=== PATIENT | male | born 1935 | race Caucasian/White ===

== ENCOUNTER 2019-04-18 22:22 | Emergency (ER) | payer MEDICARE ==
[2019-04-18 23:10] VITALS: BP 158/73; PULSE 97; RESP 18; TEMP 97.2
--- NOTE | 2019-04-19 00:19 | ED ---
General Adult HPI - General Source: patient, RN notes reviewed, old records reviewed Mode of arrival: ambulatory Limitations: no limitations <Mello Good - Last Filed: 04/19/19 01:29> <Anamaria Mann - Last Filed: 04/20/19 06:04> - General Chief complaint: Extremity Problem,Nontraumatic Stated complaint: Rt leg injury Time Seen by Provider: 04/18/19 22:52 - History of Present Illness Initial comments: 83year-old male patient with past history of stent placement currently on Plavix presents to ED with right calf pain. Patient notes that he was very active today walking about, he began express pain in his right Approximate 4 hours prior to presentation. Patient denies any history of blood clot or DVT. Patient denies any chest pain or shortness of breath. Patient denies any other complaints at this time. Systemic: Pt denies fatigue, fever/chills, rash. Pt denies weakness, night sweats, weight loss. Neuro: Pt denies headache, visual disturbances, syncope or pre-syncope. HEENT: Pt denies ocular discharge or irritation, otalgia, rhinorrhea, pharyngitis or notable lymphadenopathy. Cardiopulmonary: Pt denies chest pain, SOB, heart palpitations, dyspnea on exertion. Abdominal/GI: Pt denies abdominal pain, n/v/d. : Pt denies dysuria, burning w/ urination, frequency/urgency. Denies new onset urinary or bowel incontinence. MSK: Pt denies myalgia, loss of strength or function in extremities. Neuro: Pt denies new onset weakness, paresthesias. (Mello Good) Review of Systems ROS Other: All systems not noted in ROS Statement are negative. <Mello Good - Last Filed: 04/19/19 01:29> ROS Other: All systems not noted in ROS Statement are negative. <Anamaria Mann - Last Filed: 04/20/19 06:04> ROS Statement: Those systems with pertinent positive or pertinent negative responses have been documented in the HPI. Past Medical History Past Medical History: Hypertension, Myocardial Infarction (NH) Additional Past Medical History / Comment(s): hypercholestremia History of Any Multi-Drug Resistant Organisms: None Reported Past Surgical History: Heart Catheterization With Stent Past Psychological History: No Psychological Hx Reported Smoking Status: Never smoker Past Alcohol Use History: Occasional Past Drug Use History: None Reported <Mello Good - Last Filed: 04/19/19 01:29> General Exam Limitations: no limitations <Mello Good - Last Filed: 04/19/19 01:29> - General Exam Comments Initial Comments: Constitutional: NAD, AOX3, Pt has pleasant affect. HEENT: NC/AT, trachea midline, neck supple, no lymphadenopathy. Posterior pharynx non erythematous, without exudates. External ears appear normal, without discharge. Mucous membranes moist. Eyes PERRLA, EOM intact. There is no scleral icterus. No pallor noted. Cardiopulmonary: RRR, no murmurs, rubs or gallops, no JVD noted. Lungs CTAB in anterior and posterior hills. No peripheral edema. Abdominal exam: Abdomen soft and non-distended. Abdomen non-tender to palpation in all 4 quadrants. Bowel sounds active in LLQ. No hepatosplenomegaly. No ecchymosis Neuro: CN II-XII grossly intact. No nuchal rigidity. No raccon eyes, no selby sign, no hemotympanum. No cervical spinal tenderness. MSK: Right calf mild tenderness to palpation at proximal aspect. No popliteal tenderness. No erythema or swelling. Left calf nontender to palpation., homans sign negative bilaterally. Posterior tibialis and radial pulse +2 bilaterally. Sensation intact in upper and lower extremities. Full active ROM in upper and lower extremities, 5/5 stregnth. (Mello Good) Course Vital Signs 04/18/19 22:35 Temperature 97.2 F L Pulse Rate 97 Respiratory 18 Rate Blood Pressure 158/73 O2 Sat by Pulse 98 Oximetry Medical Decision Making <Mello Good - Last Filed: 04/19/19 01:29> <Anamaria Mann - Last Filed: 04/20/19 06:04> - Medical Decision Making 83year-old male patient with past history of stent placement currently on Plavix presents to ED with right calf pain. Patient notes that he was very active today walking about, he began express pain in his right Approximate 4 hours prior to presentation. Patient denies any history of blood clot or DVT. Patient denies any chest pain or shortness of breath. Patient denies any other complaints at this time. Patient vital signs stable, afebrile. Physical exam displayed: Right calf mild tenderness to palpation at proximal aspect. No popliteal tenderness. No erythema or swelling. Left calf nontender to palpation., homans sign negative bilaterally. Ultrasound right lower extremity did not display any sign of DVT. Patient likely strained sitting myalgia/muscle pull as he began express pain when he was very active walking. Pt will follow up with primary care provider tomorrow. Patient return to ER if condition worsens. Case discussed with Dr. Mann. (Mello Good) I was available for consultation in the emergency department. The history and physical exam were done by the midlevel provider. I was consulted for this patient's care. I reviewed the case with the midlevel provider and based on their presentation of the patient, I agree with the assessment, medical decision making and plan of care as documented. Chart was dictated using [employer] dictation software. Attempts were made to correct any dictation errors however some typographical errors may persist. (Anamaria Mann) Disposition Is patient prescribed a controlled substance at d/c from ED?: No <Mello Good - Last Filed: 04/19/19 01:29> <Anamaria Mann - Last Filed: 04/20/19 06:04> Clinical Impression: Myalgia Disposition: HOME SELF-CARE Condition: Stable Instructions (If sedation given, give patient instructions): Musculoskeletal Pain (ED) Additional Instructions: Patient to adhere to previously discussed treatment plan and will take medication(s) as directed. Patient to follow up with PCP in 1-2 days. Patient to return to ED if symptoms do not improve. Follow-up with primary care provider tomorrow. Use Tylenol or Motrin as needed for pain. Warm compresses or cold packs. Return to ER if condition worsens. Referrals: None,Stated [Primary Care Provider] - 1-2 days
--- NOTE | 2019-04-19 01:16 | US ---
INDICATION: Right leg pain TECHNIQUE: The right lower extremity deep venous system is examined utilizing real time linear array sonography with graded compression, doppler sonography and color-flow sonography. COMPARISON: None. FINDINGS: Normal compressibility is demonstrated from the common femoral vein to the popliteal vein. There is normal response to augmentation. Normal spontaneous phasic flow is noted. IMPRESSION: No evidence of acute DVT.
== END 2019-04-19 01:43 | disposition home or self-care (01) ==
LOC: EC 22:22
DX: M79.18 Myalgia, other site (principal); I10 Essential (primary) hypertension; I25.2 Old myocardial infarction; Z79.02 Long term (current) use of antithrombotics/antiplatelets; Z95.5 Presence of coronary angioplasty implant and graft
CPT/HCPCS: 99284